=== PATIENT | female | born 1945 | race Caucasian/White ===

== ENCOUNTER 2023-12-15 04:49 | Inpatient (IN) | payer MEDICARE, SELFPAY ==
[2023-12-14 22:37] VITALS: BP 151/69
[2023-12-15] VITALS (18 sets, daily range): BP systolic 109–149; BP diastolic 43–75; BMI 31.0; BMI 29.6
--- NOTE | 2023-12-15 00:30 | ED.GENMED ---
History of Present Illness
General
Chief Complaint: Abdominal Pain
Source: patient
Time Seen by Provider: 12/15/23 00:14
Travel History
Have you had any contact with someone who has COVID-19?: No
Do you have any symptoms of coronavirus? Fever > 100 degrees, chills, cough, shortness of breath, sore throat, loss of taste or smell, muscle aches, or headache?: No
History of Present Illness
History of Present Illness:
This patient is a 78-year-old female who noted abdominal pain this morning that has been constant. She describes it as a 'gas bubble', across her upper abdomen, without exacerbating relieving factors. She denies associated radiation, back pain,
urinary symptoms, chest pain, dyspnea, dizziness, nausea, vomiting. She had a normal bowel movement this morning. She does have loss of appetite today.
Past History
Past History
ED Past Medical History: GERD and HTN
ED Past Surgical History: Cholecystectomy and Other (Retinal detachment surgery)
Social History
Tobacco: Former smoker
Alcohol: Occasional
Drug: None
Personal:
Phy Exam
Physical Exam
Physical Exam:
GENERAL: Alert , in no apparent distress
EYE: pupils equal and reactive
NECK: Supple, no significant adenopathy.
ENT: o/p clr, mmm.
CARDIAC: Regular rate and rhythm .
LUNGS: Clear breath sounds bilaterally, no acute respiratory distress, no wheezes/rales/rhonchi
ABDOMEN: Soft, lower abd and luq tenderness, no r/g, no cvat
NEUROLOGICAL: Alert and oriented, no focal neuro deficits
SKIN: Warm and dry, skin intact.
MUSCULOSKELETAL: No edema, well perfused.
PSYCH: Normal and appropriate interaction.
Course
Orders/Labs/Results
Orders:
Orders
12/15/23 00:29
CT Abd/Pel (IV only)-DH only Urgent
Comment:
Reason For Exam: abd pain
Cardiac Monitoring- Treatment ONCE
12/15/23 00:30
Electrocardiogram (*1) Stat
Reason for Study: Abdominal Pain
EKG- Treatment ONCE
12/15/23 00:37
Complete Blood Count/No Diff Urgent
Comprehensive Metabolic Panel Urgent
Lipase Urgent
Troponin I Urgent
12/15/23 01:41
Urinalysis Reflex To Culture Urgent
Date Specimen was Collected: 12/15/23
Time Specimen was Collected: 01:35
Urine Microscopic Reflex Cult Urgent
Urine Culture Urgent
ANDRZEJ Source: U
Specimen Description:
Date Specimen was Collected: 12/15/23
Time Specimen was Collected: 01:35
Abnormal Lab Results
12/15/23 12/15/23
00:37 01:41
WBC 15.8 H 10^3/uL
(4.8-10.8)
MCH 31.8 H pg
(27.0-31.0)
Sodium 131 L mmol/L
(135-145)
Glucose 112 H mg/dl
(70-99)
Urine Ketones 2+ A
(Negative)
Ur Occult Blood Reflex 1+ A
(Negative)
Leukocyte Esterase Rfl 2+ A
(Negative)
12/15/23 00:37
12/15/23 00:37
Vital Signs
Initial and Last Documented VS:
Initial Vital Signs
Temp Pulse Resp BP Pulse Ox
98.3 F 91 20 151/69 96
12/14/23 22:37 12/14/23 22:37 12/14/23 22:37 12/14/23 22:37 12/14/23 22:37
Last Documented Vital Signs
Temp Pulse Resp BP Pulse Ox
98.3 F 78 20 140/67 95
12/14/23 22:37 12/15/23 00:24 12/14/23 22:37 12/15/23 00:24 12/15/23 00:24
*Critical Care Note
Total Time (30-74mins, 75-104mins- exclusive of procedures): Not Applicable
Update Note
Update Note:
Patient presents to the Emergency Department with ____abdominal pain
Number and Complexity of Problems Addressed at the Encounter
� Chronic conditions affecting care:
� Acute Exacerbation and/or Progression of Chronic Illness:
� Differential Diagnosis includes: But not limited to appendicitis, diverticulitis, peptic ulcer disease, etc.
Amount and/or Complexity of Data to be Reviewed and Analyzed
� I performed an independent evaluation of and my interpretation is:
EKG: Read by me, normal sinus rhythm, low voltage, no acute ischemia
CT: Right read by vision, acute appendicitis with appendix measuring up to 10 mm in diameter and appendicolith near the base small locule of air in the mid appendix appears to remain intraluminal no evidence of perforation or
organized fluid collection surrounding soft tissue stranding and small free fluid, no bowel obstruction.
Xrays:
Laboratory Studies: Blood cell count elevation noted
Other:
� Review of other/old records reveals:
� Clinical information was obtained by an independent historian:
� Prescriptions/Medications Considered but not given:
� Further testing considered but not performed:
Risk of Complications and/or Morbidity or Mortality of Patient Management
� Social determinants of health affecting care:
� Discussion with other providers (PCP, Hospitalists, Consultants, etc):
� Escalation of care including admission/observation vs risk of discharge considered: 2:09 AM patient comfortable, declines any medications at this time, aware of diagnosis and plan of care. Case discussed with surgery,
jose, will admit to his service will let house stock no overnight patient to be NPO.
ED Attending Note
-
Portions of this chart may have been created with voice recognition software.� Occasional wrong word or��sound alike� substitutions may have occurred due to the inherent limitations of voice recognition software.
Discharge Plan
Departure
Patient Disposition: Admit
Date of Disposition: 12/15/23
Time of Disposition: 02:09
Admit to: Med/Surg
Admit to doctor: jose
Presentation/result/management discussed w/ accepting MD/DO: jose
Condition: Fair
Discharge Problem:
Acute appendicitis
Referrals:
Jamil Hernadez MD [Family Provider] -
Interventions
Interventions:
*Risk Screen - Suicide Last Done: 12/14/23 22:37
*General Assessment Last Done: 12/14/23 22:37
*Neglect/Abuse Screening Last Done: 12/14/23 22:37
*ED COVID-19 Vaccine History Last Done: 12/15/23 00:25
HG-Ilujdy-Vannnuzelf Assessment Last Done: 12/15/23 00:25
[2023-12-15 00:52] LABS: Hematocrit 40.1 % (37.0-47.0); Hemoglobin 14.2 g/dL (12.0-16.0); Mean Corp Hgb Conc. 35.4 g/dL (33.0-37.0); Mean Corpuscular Hgb 31.8 pg (27.0-31.0); Mean Corpuscular Volume 89.9 fL (81.0-99.0); Mean Platelet Volume 10.1 fL (7.4-10.4); Platelet Count 278 10^3/uL (130-400); Red Blood Cell Count 4.46 10^6/uL (4.20-5.40); Red Cell Dist. Width 12.8 % (11.5-14.5); White Blood Cell Count 15.8 10^3/uL (4.8-10.8)
[2023-12-15 01:03] LABS: ALT (SGPT) 25 U/L (0-35); AST (SGOT) 28 U/L (14-36); Albumin 4.2 g/dl (3.5-5.0); Alkaline Phosphatase 86 U/L (38-126); Blood Urea Nitrogen 15 mg/dl (7-17); Calcium 9.5 mg/dl (8.4-10.2); Carbon Dioxide 27 mmol/L (22-30); Chloride 99 mmol/L (98-107); Estimated Creatinine Clearance 48 ml/min; Glucose 112 mg/dl (70-99); Lipase 48 U/L (23-300); Potassium 4.2 mmol/L (3.5-5.1); Sodium 131 mmol/L (135-145); Total Bilirubin 1.1 mg/dl (0.2-1.3); Total Protein 7.9 g/dl (6.3-8.2); eGFR > 60.00
[2023-12-15 01:16] LABS: Troponin I < 0.012 ng/ml
[2023-12-15 01:54] LABS: Urine Albumin Trace (Neg - Trace); Urine Bilirubin Negative (Negative); Urine Character Slightly Cloudy (Clear); Urine Color Yellow; Urine Glucose Negative (Negative); Urine Ketone 2+ (Negative); Urine Leukocyte 2+ (Negative); Urine Nitrite Negative (Negative); Urine Occult Blood 1+ (Negative); Urine Urobilinogen Negative (Neg - 1+)
[2023-12-15] MEDS: LEVAQUIN 100 IV ×2 (02:20→23:53)
--- NOTE | 2023-12-15 02:54 | HPS.HSE ---
Addendum entered and electronically signed by Kings Llanos MD 12/15/23 07:50:
Patient seen and examined. Agree with documented history and physical consistent with my independent examination evaluation at this time.
78-year-old female who developed the acute onset of abdominal pain approximately 36 hours ago. Pain initially central and epigastric area. Anorexia and nausea but no vomiting. On examination pain is localized to the right lower quadrant and
persisted prompting emergency department evaluation.
No similar episodes like this in the past. Past abdominal surgical history only notable for lap ish.
AFVSS
ABD: Soft, nondistended, tenderness palpation right lower quadrant voluntary guarding or rebound.
Assessment: 78-year-old female with acute appendicitis.
Reviewed with patient history, examination and CT imaging consistent with acute appendicitis. Discussed both operative and nonoperative management options and associated risks/benefits of approaches. Patient is in agreement to proceed with
appendectomy.
Laparoscopic appendectomy reviewed in detail with the patient. Discussed operative technique utilizing diagrams or drawings, alternative management options, benefits and potential risks such as but not limited to bleeding, infectious or wound
healing complications, iatrogenic injury to surrounding viscera. Discussed the typical postoperative recovery pending operative findings.
Any of the patient's concerns or questions were fully addressed and informed consent was obtained.
Plan: OR for laparoscopic appendectomy.
Empiric antibiotic coverage with Levaquin/Flagyl.
Nothing by mouth, IV fluid hydration and supportive care awaiting operative room availability.
SCDs for DVT prophylaxis
Original Note:
Family Physician
-
Family Physician: Jamil Hernadez
Chief Complaint
-
'abdomen pain'
History of Present Illness
78 y/o patient with the PMH of HTN, presents to ER with the c/o 'gnawing' pain at the umbilicus area radiating towards RLQ. States pain started Tuesday at [place] and was not relieved with Gas-x. 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
the stool. Reports she has loss of appetite and hasn't eaten anything whole day which is making her nauseous otherwise denies nausea and vomiting, neg Flatus. Voiding without any difficulties. Denies chest pain, SOB at present. Patient has hx of
Cholecystectomy.
CT Abd/pelvis: Acute Appendicitis, appendix measuring 10mm
Medical History
Past Medical History
Past Medical History: Reports HTN
Past Surgical History: Reports Cholecystectomy and Other (Tonsillectomy )
Social History
Tobacco: Non-smoker
Alcohol: Occasional
Drug: None
Personal:
Living: With Family
Family History
Family History: Not pertinent
Allergies / Home Medications
Allergies reflects when Allergies were last updated in [facility].
Home Medications with original date entered in [facility]
Allergy/Medication List:
Allergies
Allergy/AdvReac Type Severity Reaction Status Date / Time
Penicillins Allergy Unknown Verified 12/14/23 22:37
Review of Systems
-
History Source: Patient
A 12 point ROS was completed and negative except as noted: Yes
Constitutional: Reports No Symptoms
EENT: Reports No Symptoms
Respiratory: Reports No Symptoms
Cardiac: Reports No Symptoms
Abdomen/GI: Reports No Symptoms, Abdominal Pain and Nausea
: Reports No Symptoms
Musculoskeletal: Reports No Symptoms
Skin: Reports No Symptoms
Neurological: Reports No Symptoms
Endocrine: Reports No Symptoms
Hematologic/Lymphatic: Reports No Symptoms
Psych: Reports No Symptoms
Physical Exam
Vital Signs
Vital Signs
Temp Pulse Resp BP Pulse Ox
98.1 F 83 17 141/69 95
12/15/23 02:17 12/15/23 02:17 12/15/23 02:17 12/15/23 02:17 12/15/23 02:17
Physical Exam
General: Well Developed, Well Nourished and No Apparent Distress
HEENT: NormoCephalic, Moist mucous membranes and Atraumatic
Respiratory: Clear and Non Labored Respirations
Cardiac: S1/S2 and Regular Rhythm
Breast: Deferred by me
GI: Soft, Non Distended, Normal Bowel Sounds and Tender (RLQ, around umbilicus, + McBurney, + Psoas ); No Organomegaly
Rectal: Deferred by Provider
Genito-urinary: Deferred by me
Musculoskeletal: No Clubbing, No Cyanosis and No Edema
Skin: Warm and Dry; No Rash
Neuro: Awake, AO x 3 and Nonfocal/grossly intact
Hematologic/Lymphatic: No Lymphadenopathy
Psych: Calm and Intact Judgment/Insight
Laboratory Results
-
12/15/23 00:37
12/15/23 00:37
Laboratory Results
Total Bilirubin 1.1 mg/dl (0.2-1.3) 12/15/23 00:37
AST 28 U/L (14-36) 12/15/23 00:37
ALT 25 U/L (0-35) 12/15/23 00:37
Alkaline Phosphatase 86 U/L (38-126) 12/15/23 00:37
Troponin I < 0.012 ng/ml 12/15/23 00:37
Lipase 48 U/L (23-300) 12/15/23 00:37
Data Reviewed
-
CT Scan: Report Reviewed by me
Lab Data: Labs Reviewed by me
Impression/Plan
-
78 y/o with abdomen pain
# Abdomen pain likely due to Appendicitis
-CT Abd/Pelvis: Acute Appendicitis with Appendix measuring up to 10 mm in diameter
-WBC: 15.8
-Continue IV Levaquin
-continue IV Flagyl
-NPO MN
-Continue Pain medications
-IV Compazine as needed
-UA pending
-Admit under Dr. Llanos
#Hyponatremia
-Na 131
-check Urine Osm, Urine Na
-check serum osm
-labs in AM
-Hold hydrochlroathiazide (patient takes at home)
#Essential HTN
-Check BP
DVT prophylaxis: SCD's
Full Code
[2023-12-15] MEDS: FLAGYL 500 MG 100 IV ×3 (03:27→17:06)
[2023-12-15 04:10] LABS: Urine Amorphous Seen; Urine Bacteria Many (Negative); Urine Squamous Cell >30 /LPF (Few); Urine Urothelial Cell >30 /LPF (FEW); Urine White Cell >100 /HPF (0-5)
[2023-12-15] MEDS: TORADOL 10 MG IV (05:45)
[2023-12-15] MEDS: NSS 1000 IV ×2 (08:12→22:06)
--- NOTE | 2023-12-15 08:35 | W.SUR.PREOP ---
Pre-Operative Surgical Note
-
I have examined this patient prior to the performance of the scheduled procedure.
The patient's condition is unchanged from the time of the current History and
Physical and the patient is able to undergo the scheduled procedure.
[2023-12-15 08:43] LABS: Osmolality Serum 281 mOsm/kg (275-300)
--- NOTE | 2023-12-15 09:34 | W.IMMPOSTOP ---
Addendum entered and electronically signed by Kings Llanos MD 12/15/23 09:50:
#[id number]
Original Note:
Surgical Immed Post Op Note
-
Primary Surgeon: Viet
Assisting Surgeon: None
Pre-op Diagnosis: Acute Appendicitis
Post-op Diagnosis: Acute appendicitis with perforation; without abscess, with localized peritonitis
Procedure Performed: Laparoscopic Appendectomy
Anesthesia Type: GETA + 0.25% Marcaine
Specimen / Cultures: appendix
Estimated Blood Loss: 8mL
Complications: none
Operative Findings: acutely inflamed appendix with some surrounding purulence and inflammatory adhesions. contained intramesenteric perforation but entered into perforation with appendectomy. appendix divided flush with cecum with EDWIN 45 kitchen
stapler; base not affected.
Plan: continue IV abx post op
liquid diet today, monitoring for post op ileus
--- NOTE | 2023-12-15 10:46 | PTCARENOTE ---
1020 Pt returned from PACU AAOX3. O2 @ 2 liters. Family at bedside. IVF infusing per order. Pt denied pain and discomfort. Lap sites with skin glue CDI and dressing to left side of abd CDI. Personal items and call light at within reach.
--- NOTE | 2023-12-15 16:20 | CM ---
Alert awake oriented patient who lives with Sohail in an apartment with an elevator. She is independent in driving and all activities of daily living.She is currently on oxygen . She has no adaptive devices at home.Offered VN she declined.
No SNF/VN hx
Pharmacy [facility]
PCP Dr Hernadez
PLAN Home no needs Watch for oxygen needs
[2023-12-15 17:27] LABS: Osmolality Urine 188 mOsm/kg (300-900)
[2023-12-15 17:42] LABS: Urine Sodium 5 mmol/L (30-90)
[2023-12-16] MEDS: FLAGYL 500 MG 100 IV ×2 (03:06→09:01)
[2023-12-16 03:09] VITALS: BP 110/54
[2023-12-16] MEDS: NSS IV (03:09)
[2023-12-16 07:42] VITALS: BP 96/43
--- NOTE | 2023-12-16 08:57 | W.PN.GS2 ---
Addendum entered and electronically signed by Ryan Bach MD 12/16/23 09:37:
Will discharge patient later today if she is able to tolerate lunch.
Prescription sent to her pharmacy.
Original Note:
Today's Communication / Plan
-
Dispo planning.
Assessment / Plan
-
This is a 78-year-old female postoperative day 1 from a laparoscopic appendectomy for acute appendicitis with localized perforation. Doing well, expected postoperative course.
Tylenol, oxycodone as needed for pain.
Will continue antibiotics x 4 days (okay to transition to p.o).
Regular diet.
Patient to follow-up with Dr. Llanos in 2 to 3 weeks. Discharge instructions updated.
Cleared for discharge from surgery, dispo per primary.
Time Spent
Total Time Spent with Patient (in minutes): 10
Subjective Data
-
Date of Service: December 16, 2023
Interval Events:
No acute events overnight. Slept well. Pain Controlled. Denies Nausea/Vomiting, -bowel function. Tolerating diet.
Objective Data
-
Intake and Output
12/15/23 12/16/23 12/17/23
06:59 06:59 06:59
Intake Total 2190 / 2190
Output Total 200 / 200
Balance 1989
Intake:
Oral fluids 1140 / 1140
IV fluids (Total) 950 / 950
Normosol 150 / 150
IV piggybacks 100 / 100
Output:
Urine, Voided 200 / 200
Other:
Number of approximated MODERATE 1
amounts of urine
Vital Signs
Temp Pulse Resp BP Pulse Ox
97.2 F 70 16 96/43 96
12/16/23 07:42 12/16/23 07:42 12/16/23 07:42 12/16/23 07:42 12/16/23 07:42
Lab Results
12/15/23 00:37
12/15/23 00:37
Calcium 9.5 mg/dl (8.4-10.2) 12/15/23 00:37
Total Bilirubin 1.1 mg/dl (0.2-1.3) 12/15/23 00:37
AST 28 U/L (14-36) 12/15/23 00:37
ALT 25 U/L (0-35) 12/15/23 00:37
Alkaline Phosphatase 86 U/L (38-126) 12/15/23 00:37
Total Protein 7.9 g/dl (6.3-8.2) 12/15/23 00:37
Albumin 4.2 g/dl (3.5-5.0) 12/15/23 00:37
Physical Exam
-
GENERAL/NEURO: Awake, Alert, no distress
CHEST: Unlabored breathing on RA
ABDOMEN: Soft, Non-Tender, Non-Distended, incisions clean dry and intact.
[2023-12-16] MEDS: NSS 1000 IV (09:01)
--- NOTE | 2023-12-16 10:31 | CM ---
Chart reviewed. Spoke with pt and her
IMM discussed with pt
Plan for discharge today - no needs
--- NOTE | 2023-12-24 15:06 | W.DCSUMMARY ---
Discharge Summary
Discharge Data
Date of Admission: 12/15/23
Date of Discharge: 12/24/23
-
Pending Results: No
Hospital Course
This is a 78 yo female who presented with approximately 36 hour history of abdominal pain with anorexia. Imaging and exam were consistent with acute appendicitis. She was taken to the OR for laparoscopic appendectomy with localized peritonitis and
perforation of the appendix noted intraoperatively. She did well in the immediate post operative period and her diet was able to be advanced and well tolerated. She was discharged to home on oral antibiotics with outpatient follow up arranged.
Discharge Plan
-
Patient Disposition: Home (Routine Discharge)
Discharge Diagnosis/Procedures: Acute appendicitis; laparoscopic appendectomy
Condition: Good
Diet: As tolerated and Regular
Additional Diets: Smaller meals initially after surgery as abdominal bloating and distention may be common for the first few days
Activity: No strenuous activity
Additional Activity: No lifting over 20 pounds for 3 to 4 weeks postop. Walking, standing, stairs routine light activities are all okay as tolerated
Driving Restrictions: No driving 1 to 2 days or if using narcotics
Bathing Restrictions: OK to Shower
Wound Care: Surgical glue dressings typically peel off in 2 to 3 weeks
Activity Restrictions/Additional Instructions:
Call if fever >101 �F, worsening abdominal pains, persistent nausea vomiting, redness and drainage from surgical sites or any additional concerns or questions.
Referrals:
Jamil Hernadez MD [Family Provider] -
Kings Llanos MD [Active] - in two weeks
Prescriptions:
New
acetaminophen [acetaminophen] 325 mg tablet
650 mg PO Q6HPRN PRN (Reason: mild pain) Qty: 14 0RF
ciprofloxacin HCl 100 mg tablet
500 mg PO Q12H Qty: 8 0RF
ibuprofen 600 mg tablet
600 mg PO Q6H PRN (Reason: pain) Qty: 14 0RF
oxycodone 5 mg tablet
5 mg PO Q6HPRN PRN (Reason: breakthrough/severe pain) Qty: 8 0RF
metronidazole 500 mg tablet
500 mg PO BID 4 Days Qty: 8 0RF
Continued
ascorbic acid (vitamin C) [Vitamin C] 1,000 mg Tablet
1,000 mg PO DAILY
hydrochlorothiazide 12.5 mg capsule
12.5 mg PO DAILY
cholecalciferol (vitamin D3) 25 mcg (1,000 unit) Tablet,Chewable
25 mcg PO DAILY
multivitamin,tx-minerals Tablet
1 tab PO DAILY
Discharge Orders:
Discharge Patient (As Directed); Ordered 12/16/23
Ordered By: Ryan Bach
Discharge Date and Time
Discharge Date/Time: 12/16/23 14:21
== END 2023-12-16 14:21 | disposition home or self-care (01) | DRG 398 ==
LOC: 3 WEST ACU 04:49
PROVIDERS: Nurse Practitioner Gerontology; ADMITTING PHYSICIAN Surgery; EMERGENCY PHYSICIAN Emergency Medicine; FAMILY PHYSICIAN Internal Medicine
PROC: 0DTJ4ZZ Resection of Appendix, Percutaneous Endoscopic Approach (ICD-10-PCS; 2023-12-15)
DX: K35.32 Acute appendicitis with perforation, localized peritonitis, and gangrene, without abscess (principal); E87.1 Hypo-osmolality and hyponatremia; I10 Essential (primary) hypertension; D25.9 Leiomyoma of uterus, unspecified; K21.9 Gastro-esophageal reflux disease without esophagitis; Z90.49 Acquired absence of other specified parts of digestive tract; Z88.0 Allergy status to penicillin; Z87.891 Personal history of nicotine dependence
CPT/HCPCS: 88304; 74177; 80053; 81003; 81015; 83690; 83930; 83935; 84300; 84484; 85027; 87086; 93005; 96365; 96367; 99285; Q9967